=== PATIENT | female | born 1945 | race Caucasian/White ===

== ENCOUNTER 2021-05-25 06:04 | Inpatient (IN) ==
--- NOTE | 2021-05-03 15:36 | PAT Medication Instructions ---
Medication Instructions Date of Service May 03, 2021 Home Medications ascorbic acid (vitamin C) 500 mg tablet (Vitamin C) 500 mg PO QAM aspirin 81 mg tablet,delayed release 81 mg PO QAM atorvastatin 20 mg tablet 20 mg PO QAM cholecalciferol (vitamin D3) 50 mcg (2,000 unit) capsule (Vitamin D3) 50 mcg PO QAM latanoprost 0.005 % eye drops 1 drp OPHTHALMIC (EYE) HS timolol maleate 0.5 % eye drops 1 drp OPHTHALMIC (EYE) QAM ASK your prescriber and surgeon aspirin 81 mg tablet,delayed release 81 mg PO QAM DO NOT take the morning of surgery ascorbic acid (vitamin C) 500 mg tablet (Vitamin C) 500 mg PO QAM cholecalciferol (vitamin D3) 50 mcg (2,000 unit) capsule (Vitamin D3) 50 mcg PO QAM Take morning of surgery With a small sip of water, OTHERWISE NOTHING TO EAT OR DRINK AFTER MIDNIGHT: atorvastatin 20 mg tablet 20 mg PO QAM timolol maleate 0.5 % eye drops 1 drp OPHTHALMIC (EYE) QAM Take evening before surgery latanoprost 0.005 % eye drops 1 drp OPHTHALMIC (EYE) HS Other Notes If you have any questions please call us at [phone] or [phone] or [phone] or [phone]
--- NOTE | 2021-05-11 12:53 | Anesthesiology Consultation ---
Date of Service May 11, 2021 Assessment & Plan (1) Encounter for pre-operative examination: COVID screening: Per assessment on 05/11: Travel screen negative, no known COVID- 19 positive contacts or current COVID-19 related symptoms. Patient vaccinated. Surgeon arranging preop COVID testing. Awaiting results. Chart Review Chart Review: Acceptable Risk for Surgery and Patient seen in Pre Admission Testing Teaching & Discussion Pre-Anesthesia Teaching/Discussion Notes: Instructed NPO after midnight before surgery,except medications with 15 cc of water. Medication instructions provided according to the PAT guidelines. History Surgery Operation Date: 05/25/21 12:25 Proposed Procedures p L4-S1 Decompression Fusion, Spinal Cord Montenriqueing - Xavi De Oliveira, Height/Weight Height: 5 ft 3 in Weight: 45.7 kg Allergies Allergy/AdvReac Type Severity Reaction Status Date / Time No Known Allergies Allergy Verified 04/24/21 14:24 Medications Home Medications Medication Instructions Recorded Confirmed Last Taken ascorbic acid (vitamin C) 500 mg 500 mg PO QAM 04/24/21 04/24/21 Unknown tablet (Vitamin C) aspirin 81 mg tablet,delayed 81 mg PO QAM 04/24/21 04/24/21 Unknown release atorvastatin 20 mg tablet 20 mg PO QAM 04/24/21 04/24/21 Unknown cholecalciferol (vitamin D3) 50 50 mcg PO QAM 04/24/21 04/24/21 Unknown mcg (2,000 unit) capsule (Vitamin D3) latanoprost 0.005 % eye drops 1 drp OPHTHALMIC (EYE) 04/24/21 04/24/21 Unknown timolol maleate 0.5 % eye drops 1 drp OPHTHALMIC (EYE) [facility] 04/24/21 04/24/21 Unknown Past Medical History Medical History Age related osteoporosis Previously on med- since discontinued Back problem Glaucoma History of kidney cancer 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)- tumor/partial kidney resection done, no chemo/xrt History of kidney stones Hyperlipidemia Kidney disease Left kidney "never functioned"/?atrophy Kidney stones Present, no current issues Scoliosis Wrist fracture, right Currently in splint, s/p recent surgery 03/2021 Exercise / Class Metabolic Activity II 4-5 Yardwork/Stairs/Walk up hill (one FS (no CP, no SOB)) Past Surgical History Surgical History History of cholecystectomy History of colonoscopy History of gynecologic surgery PROLAPSED UTERUS (MAY 2020) History of hysterectomy History of partial nephrectomy RIGHT History of surgery on right wrist 03/2021 Nausea and vomiting after administration of anesthetic agent Remote issue, did not have issue with recent outpatient wrist surgery Past Anesthesia History No Hx of Anesthesia Complications (except remote PONV) and No Family Hx of Anesthesia Complications History of PONV No Hx of Motion Sickness and History of PONV (Remote issue, did not have issue with recent outpatient wrist surgery) Social History Smoking Status: Never smoker Do You Dip or Chew Tobacco: No Hx Alcohol Use: No Hx Substance Use: No substance use type: does not use Review of Systems Patient denies chest pain, shortness of breath, dyspnea on exertion, fever, chills, cough, wheezing, palpitations. Physical Exam Vital Signs VITALS BP 123/83 P 70 TEMP 98.3 SP02 98%RA RESP 18 PHYSICAL Full cervical extension range of motion. Full TMJ range of motion. TMD 3 finger breaths Mallampati Score 3 Dentition: intact Lungs: clear throughout to auscultation Cardiac: regular rate and rhythm, no murmurs noted Spine: normal Carotid arteries: negative bruit Extremities: no edema, right wrist in split 03/21 recent surgery 03/2021 Lab Results Anesthesia Preop Results Results Anesthesia Widget: WBC 8.36 K/uL (4.8-10.8) 05/11/21 Hgb 12.2 g/dL (12.0-16.0) 05/11/21 Hct 37.2 % (37-47) 05/11/21 Plt 351 K/uL (130-400) 05/11/21 Na 143 mmol/L (136-145) 05/11/21 K 3.8 mmol/L (3.5-5.1) 05/11/21 Cl 110 mmol/L (98-107) H 05/11/21 CO2 26 mmol/L (21-32) 05/11/21 BUN 14 mg/dl (6-23) 05/11/21 Creat 0.72 mg/dl (0.6-1.2) 05/11/21 Glucose Level 122 mg/dl (70-99(Fasting)) H 05/11/21 PT 10.1 Seconds (9.0-12.0) 05/11/21 PTT 25.4 Seconds (21.0-31.0) 05/11/21 INR 0.9 (0.9-1.1) 05/11/21 Urine Color Yellow 05/11/21 Urine Appearance Clear (Clear) 05/11/21 Urine pH 5.0 (4.5-7.5) 05/11/21 Urine Specific Sanderson 1.019 (1.000-1.030) 05/11/21 Urine Protein Negative (Negative) 05/11/21 Urine Glucose (UA) Negative (Negative) 05/11/21 Urine Ketones Negative (Negative) 05/11/21 Urine Blood Negative (Negative) 05/11/21 Urine Nitrite Negative (Negative) 05/11/21 Urine Bilirubin Negative (Negative) 05/11/21 Urine Urobilinogen Negative (Negative) 05/11/21 Urine Leukocyte Esterase Negative (Negative) 05/11/21 Blood Type O Positive 05/11/21 Antibody Screen POSITIVE A 05/11/21 Lab Comments: Oren at [facility] bank aware of positive antibodies* Testing Electrocardiogram Date: 05/14/21 NSR at 70bom. NS STA. Chest X-Ray Date: 05/11/21 FINDINGS: Frontal and lateral radiographs of the chest demonstrate the cardiomediastinal silhouette to be within normal limits. The lungs are clear of alveolar opacities. There is no evidence for effusion bilaterally. There is no evidence for vascular congestion. There is no acute osseous pathology. IMPRESSION: No acute cardiopulmonary disease.
[~2021-05-25 06:04] MED LIST: ACETAMINOPHEN 500 MG TAB PO SCH; CeleBREX 200 MG CAP PO SCH; GABAPENTIN 300 MG CAP PO SCH; LR 15ML/HR IV SCH; ceFAZolin 1000MG 1,000 MG/7.5 ML SYR IV SCH
[2021-05-25] MEDS ORDERED: SUGAMMADEX SODIUM 200 MG/2 ML VIAL IV ONE (06:11)
[2021-05-25] MEDS ORDERED: HYDROmorphone INJ 2 MG/ML SYR/VIAL ONE (06:28)
[2021-05-25] MEDS ORDERED: ATROPINE SULFATE 0.1 MG/ML 10ML SYR IV PRN (07:06)
[2021-05-25] MEDS ORDERED: ePHEDrine sulfate 50 MG/ML AMP IV PRN (07:06)
[2021-05-25] MEDS ORDERED: fentaNYL citrate 100 MCG/2 ML VIAL IV PRN (07:06)
[2021-05-25] MEDS ORDERED: ONDANSETRON INJ 2 MG/ML 2 ML VIAL IV PRN ×2 (07:06→11:40)
[2021-05-25] MEDS ORDERED: HYDROmorphone INJ 1 MG/ML SYRINGE IV PRN ×2 (07:06→11:40)
[2021-05-25] MEDS ORDERED: GLYCOPYRROLATE 0.2 MG/ML VIAL ONE (07:18)
[2021-05-25] MEDS ORDERED: LIDOCAINE 2% 2 ML VIAL/AMP(20MG/ML) INFIL ONE (07:18)
[2021-05-25] MEDS ORDERED: ROCURONIUM BROMIDE 10 MG/ML 5 ML VIAL IV ONE (07:18)
[2021-05-25] MEDS ORDERED: PROPOFOL IV EMULSION 10 MG/ML 20 ML VIAL IV ONE (07:18)
[2021-05-25] MEDS ORDERED: MIDAZOLAM HCL 1 MG/ML 2ML VIAL ONE (07:18)
[2021-05-25] MEDS ORDERED: DEXAMETHASONE SOD INJ 4 MG/ML VIAL ONE (07:18)
[2021-05-25] MEDS ORDERED: ONDANSETRON INJ 2 MG/ML 2 ML VIAL ONE (07:18)
--- NOTE | 2021-05-25 07:35 | History & Physical Bridge Note ---
Date of Service May 25, 2021 History & Physical Bridge Note I have examined the patient, reviewed the History & Physical and in the interval since the performance of the History & Physical I have noted the following changes of clinical significance: no changes noted
--- NOTE | 2021-05-25 07:38 | History & Physical Report ---
Date of Service May 25, 2021 Assessment & Plan (1) Neurogenic claudication due to lumbar spinal stenosis: Plan: Lumbar decompression L4-S1 History of Present Illness Chief Complaint: Back and leg pain Primary Care Provider: Hever Montana DO 75-year-old female with significant back and right leg pain. After failing since course of nonoperative care is here for surgical invention. Allergies Allergy/AdvReac Type Severity Reaction Status Date / Time No Known Allergies Allergy Verified 05/25/21 06:23 Home Medications Medication Instructions Recorded Confirmed Type ascorbic acid (vitamin C) 500 mg 500 mg PO QAM 04/24/21 05/25/21 History tablet (Vitamin C) aspirin 81 mg tablet,delayed 81 mg PO QAM 04/24/21 05/25/21 History release atorvastatin 20 mg tablet 20 mg PO QAM 04/24/21 05/25/21 History cholecalciferol (vitamin D3) 50 50 mcg PO QAM 04/24/21 05/25/21 History mcg (2,000 unit) capsule (Vitamin D3) latanoprost 0.005 % eye drops 1 drp OPHTHALMIC (EYE) 04/24/21 05/25/21 History timolol maleate 0.5 % eye drops 1 drp OPHTHALMIC (EYE) QAM 04/24/21 05/25/21 History Past Med/Surg History Medical History Age related osteoporosis Previously on med- since discontinued Back problem Glaucoma History of kidney cancer 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)- tumor/partial kidney resection done, no chemo/xrt History of kidney stones Hyperlipidemia Kidney disease Left kidney "never functioned"/?atrophy Kidney stones Present, no current issues Scoliosis Wrist fracture, right Currently in splint, s/p recent surgery 03/2021 Surgical History History of cholecystectomy History of colonoscopy History of gynecologic surgery PROLAPSED UTERUS (MAY 2020) History of hysterectomy History of partial nephrectomy RIGHT History of surgery on right wrist 03/2021 Nausea and vomiting after administration of anesthetic agent Remote issue, did not have issue with recent outpatient wrist surgery Social History Smoking Status: Never smoker Do You Dip or Chew Tobacco: No; Hx Alcohol Use: No Hx Substance Use: No Preferred Language: Colombian Communication Ability: Effective Bi Data Architect Required: No Beliefs That Will Affect Care: None Current Living Situation: Spouse Other Information That Helps Us Care for You: No Feels Safe at Home: Yes Assistive Devices: None Physical Exam Physical Exam: Patient is alert and oriented Heart regular in rhythm Lungs clear Results & Data ([facility]) Vital Signs (Past 12 Hours) Vital Signs Temp Pulse Resp BP Pulse Ox 05/25/21 06:37 36.7 C 65 16 150/93 H 100
[2021-05-25] MEDS ORDERED: ePHEDrine sulfate 50 MG/ML SYR ONE (08:22)
[2021-05-25] MEDS ORDERED: PHENYLEPHRINE 100MCG/ML 5ML SYR ONE (08:22)
[2021-05-25] MEDS ORDERED: FLOSEAL HEMOSTATIC MATRIX 10ML TOP ONE ×3 (08:36→08:44)
[2021-05-25] MEDS ORDERED: SODIUM CHLORIDE 0.9% INJ 10 ML VIAL ONE (08:37)
[2021-05-25] MEDS ORDERED: BUPIVACAINE/EPINEPHRINE 0.25% 1:200,000 30 ML VIAL INFIL ONE ×2 (09:27→09:29)
--- NOTE | 2021-05-25 10:10 | Operative Report ---
Post Operative Report Pre & Post Diagnosis Operation Date: 05/25/21 07:45 Pre-Op Diagnosis: Lumbar spinal stenosis with radiculopathy Lumbar spondylolisthesis Post-Op Diagnosis: Same I identified the patient and participated in the time-out.: Yes Procedure Operation Date: 05/25/21 07:45 Actual Procedures Lumbar decompression bilateral medial facetectomies and foraminotomies L3-L4 L4- 5 L5-S1. #2 posterior spinal fusion L4-L5 L5-S1. #3 placement posterior instrumentation using Medicrea rods and screws L4-S1. #4 interbody fusion L4- L5 L5-S1. #5 placement of Spira cage 8 x 22 at L4-5 and 9 x 22 at L5-S1. #6 placement locally harvested morselized autograft in the posterior gutters. #7 placement infuse collagen sponge, master graft in the posterior gutters and I factor in the body space. Surgeon Xavi De Oliveira, Production Graphic Designer Derrick Buchanan Estimated Blood Loss 100 Findings Consistent with Post-Op Diagnosis Specimens None Indications This is a 75-year-old female with severe neuroforaminal stenosis and radiculopathy after failing course of nonoperative care is here for surgical intervention. Description of Procedure Patient met with identified informed consent obtained. Patient was then taken to the operative suite underwent a patient placed in a prone position adjustable top Joon frame. All bony prominences well-padded eyes inspected to ensure no external pressure placed upon the. This point the lumbar spine was prepped and draped in a normal sterile fashion. Sharp dissection with the assistance of Bovie cautery was performed down to and exposing the lamina transverse processes of L4-5 and sacral ala bilaterally. From caudal to cephalad fashion complete laminectomy L5 L4 partial laminectomy L3 was performed occluding bilateral medial facetectomies and foraminotomies addressing severe spinal stenosis. Pedicle screws were then placed in L4-L5 and S1 levels bilaterally with assistance of fluoroscopy. By way of a transfemoral approach and left knee discectomy of L5-S1 was performed endplates curetted to subcortical being bone and a 9 x 22 mm Spira cage filled I factor tapped in position. Then proceeded to L4-L5 and again by way of a transforaminal portion left complete discectomy performed endplates curetted to subcortically bone and 8 x 22 mm Spira cage filled with I factor tapped in position. The rods were then locked into final position bilaterally. The transverse processes of L4-L5 and sacral ala burred to subcortical bleeding bone. Infuse collagen sponge mass graft local autograft was placed in the posterior gutters. 15 round SAMUEL drain inserted. The incision was then closed with 1 Vicryl the fascia 2-0 Vicryl subcutaneously and 4 Monocryl for final skin closure. Steri-Strip sterile dressing was placed. Patient will continue PACU stable condition. Please note spinal cord monitoring was utilized at the procedure no changes noted. Lastly Derrick Buchanan was present at the entire surgery and while the patient positioning complex portions of the surgery and fascial closure. I attest to the content of the Intraoperative Record and any orders documented therein. Any exceptions are noted below.
--- NOTE | 2021-05-25 11:04 | Anesthesiology Progress Note ---
Date of Service May 25, 2021 Anesthesia Post Procedure Vital Signs Vital Signs: Temp Pulse Pulse Resp BP Pulse Ox 05/25/21 10:55 95 H 16 105/79 96 05/25/21 10:45 90 16 119/81 99 05/25/21 10:35 92 H 23 115/83 100 05/25/21 10:29 36 C L 86 16 129/81 99 05/25/21 06:37 36.7 C 65 16 150/93 H 100 Transfer of Care Handoff Completed per policy Notes Mental Status: alert / awake / arousable and participated in evaluation Patient Amnestic to Procedure: Yes Nausea / Vomiting: adequately controlled Pain: adequately controlled Airway Patency, RR, SpO2: stable & adequate BP & HR: stable & adequate Hydration State: stable & adequate Anesthetic Complications: no major complications apparent and Pt Satisfied with anesthetic care
[2021-05-25] MEDS: SODIUM CHLORIDE 0.9% 1000ML 1,000 ML IV SCH ×2 (11:40→20:50)
[2021-05-25] MEDS ORDERED: DO NOT ADMINISTER PNEUMOCOCCAL VACCINE PRN (11:40)
[2021-05-25] MEDS ORDERED: MAGNESIUM HYDROXIDE SUSP 30 ML UDC PO PRN (11:40)
[2021-05-25] MEDS ORDERED: HYDROmorphone INJ 0.5 MG/0.5 ML SYR IV PRN (11:40)
[2021-05-25] MEDS ORDERED: diphenhydrAMINE Capsule 25 MG CAP PO PRN (11:40)
[2021-05-25] MEDS ORDERED: ONDANSETRON 4 MG OD TAB PO PRN (11:40)
[2021-05-25] MEDS ORDERED: METOCLOPRAMIDE HCL INJ 5 MG/ML 2 ML VIAL IV PRN (11:40)
[2021-05-25] MEDS ORDERED: DO NOT ADMINISTER FLU VACCINE PRN (11:40)
[2021-05-25] MEDS ORDERED: SOD PHOSPHATE/SOD BIPHOSPHATE ENEMA 132 ML BTL PR PRN (11:40)
[2021-05-25] MEDS ORDERED: hydrOXYzine HCl 25 MG TAB PO PRN (11:40)
[2021-05-25] MEDS ORDERED: NALOXONE HCL 0.4 MG/1 ML VIAL/CARP IV PRN (11:40)
[2021-05-25] MEDS ORDERED: LORazepam 0.5 MG TAB PO PRN (11:40)
[2021-05-25] MEDS ORDERED: FAMOTIDINE 20 MG TAB PO PRN (11:40)
[2021-05-25] MEDS ORDERED: PROMETHAZINE HCL 12.5 MG in SODIUM CHLORIDE 0.9% 50 ML IV PRN (11:40)
[2021-05-25] MEDS ORDERED: ALUMINUM/MAGNESIUM SUSP 30 ML UDC PO PRN (11:40)
[2021-05-25] MEDS ORDERED: ACETAMINOPHEN 1,000 MG/100 ML VIAL IV PRN (11:40)
[2021-05-25] MEDS ORDERED: LORazepam 2 MG/1 ML VIAL IV PRN (11:40)
[2021-05-25] MEDS ORDERED: traMADol HCL 50 MG TABLET PO PRN (11:40)
[2021-05-25] MEDS ORDERED: bisacodyL 10 MG SUPP PR PRN (11:40)
--- NOTE | 2021-05-25 13:06 | Consultation ---
Date of Consultation May 25, 2021 Assessment & Plan (1) Neurogenic claudication due to lumbar spinal stenosis: Neurogenic claudication due to lumbar spinal stenosis Actual Procedures Lumbar decompression bilateral medial facetectomies and foraminotomies L3-L4 L4-5 L5-S1. #2 posterior spinal fusion L4-L5 L5-S1. #3 placement posterior instrumentation using Medicrea rods and screws L4-S1. #4 interbody fusion L4- L5 L5-S1. #5 placement of Spira cage 8 x 22 at L4-5 and 9 x 22 at L5-S1. #6 placement locally harvested morselized autograft in the posterior gutters. #7 placement infuse collagen sponge, master graft in the posterior gutters and I factor in the body space. POD #[address] De Oliveira EBL 100ml tolerated procedure well pain/wound management per ortho activity and therapy as prescribed by ortho encourage incentive spirometry monitor hgb, pre op 12.2 Hx of R kidney ca s/p R nephrectomy Nonfunctioning L kidney - per pt ? atrophic kidney follow bmp, avoid nephrotoxic agents Glaucoma continue eye gtts DVT ppx: per primary PCP: Hever carpenter FULL CODE Pt was seen and examined in collaboration with Dr. France, please see addendum Thank you for this consultation. We will follow the patient with you during their hospital stay. You can reach a member of the [facility] [address] Hospitalist Team 09/09 via hospitalist role on tiger text. Supervising Physician Co-Signing Physician Notes Care coordinated with Kyra Parks PA-C. Agree with above note. Patient seen and examined. Please refer to her notes for full details. Vital signs reviewed. Physical exam: General exam: Alert and oriented. Not in acute distress. CVS: S1 and S2 heard, regular rate and rhythm, no murmurs. RS: Clear to auscultation, no wheezing or crackles. ABD: Soft, bowel sounds present, nontender, no distention. DIELECTRIC TESTING MACHINE OPERATOR: Nonfocal. Musculoskeletal; S/p Back surgery Dressing and drain intact EXT: No edema, no erythema. Labs: Reviewed. Assessment and plan: s/p Back surgery management as per ortho. Hx of Glaucoma eye drops Other diagnosis and plan of care as per Kyra Parks PA-C. Guanaco sanz MD. History of Present Illness Requesting Physician: Dr. De Oliveira Reason for Consultation: Postop medical management Attending Physician: Xavi De Oliveira DO History of Present Illness This is a 75-year-old female who has significant past medical history of her kidney cancer status post partial nephrectomy, nonfunctioning left kidney, history of nephrolithiasis, glaucoma, scoliosis, recent right wrist fracture who presents for elective lumbar procedure by Dr. Kilo aldrich. She underwent L3-S1 decompression fusion and tolerated the procedure well. Postoperatively she is eating a clear liquid diet for lunch and tolerating it well. Her is at bedside. She complains of mild postop pain but denies any radicular symptoms. She is a Wakefield catheter in place. She denies fever, chills, sweats, lightheadedness, dizziness, chest pain, shortness of breath, nausea, vomiting, abdominal pain, change in bowel or urinary habits. She states at baseline she tends to run on the constipated side she takes a daily Dulcolax and MiraLAX daily. Due to prior history of kidney cancer partial nephrectomy she does have residual hernia can result in constipation. Her PCP is in [place] Allergies Allergy/AdvReac Type Severity Reaction Status Date / Time No Known Allergies Allergy Verified 05/25/21 06:23 Home Medications Medication Instructions Recorded Confirmed Type ascorbic acid (vitamin C) 500 mg 500 mg PO QAM 04/24/21 05/25/21 History tablet (Vitamin C) aspirin 81 mg tablet,delayed 81 mg PO QAM 04/24/21 05/25/21 History release atorvastatin 20 mg tablet 20 mg PO QAM 04/24/21 05/25/21 History cholecalciferol (vitamin D3) 50 50 mcg PO QAM 04/24/21 05/25/21 History mcg (2,000 unit) capsule (Vitamin D3) latanoprost 0.005 % eye drops 1 drp OPHTHALMIC (EYE) 04/24/21 05/25/21 History timolol maleate 0.5 % eye drops 1 drp OPHTHALMIC (EYE) QA 04/24/21 05/25/21 History oxycodone 5 mg tablet 5 mg PO Q6H PRN #30 tab 05/25/21 Rx tramadol 50 mg tablet 50 mg PO Q6H PRN #30 tab 05/25/21 Rx Patient History Medical History (Updated 05/25/21 @ 13:01 by Kyra Parks PA-C) Age related osteoporosis Previously on med- since discontinued Back problem Glaucoma History of kidney cancer 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)- tumor/partial kidney resection done, no chemo/xrt History of kidney stones Hyperlipidemia Kidney disease Left kidney "never functioned"/?atrophy Kidney stones Present, no current issues Scoliosis Wrist fracture, right Currently in splint, s/p recent surgery 03/2021 Surgical History History of cholecystectomy History of colonoscopy History of gynecologic surgery PROLAPSED UTERUS (MAY 2020) History of hysterectomy History of partial nephrectomy RIGHT History of surgery on right wrist 03/2021 Nausea and vomiting after administration of anesthetic agent Remote issue, did not have issue with recent outpatient wrist surgery Family History Denies family history of Diabetes Heart disease Social History Smoking Status: Never smoker Do You Dip or Chew Tobacco: No; Hx Alcohol Use: No Hx Substance Use: No Preferred Language: Stateless Communication Ability: Effective Digital Strategist Senior Manager Required: No Beliefs That Will Affect Care: None Current Living Situation: Spouse Other Information That Helps Us Care for You: No Feels Safe at Home: Yes Assistive Devices: None Review of Systems Review of Systems: All systems reviewed & are unremarkable except as noted in HPI & below Physical Exam Physical Exam: Constitutional: WD/WN, soft-spoken, female, vitals as above, NAD, sitting up in bed, pleasant, conversing easily Head: Normocephalic, Atraumatic Eyes: PERRL, conjunctivae normal, anicteric sclerae ENMT: external ear and nose normal, oropharynx normal Neck: trachea midline, no thyromegaly normal visual inspection Respiratory: normal respiratory effort, lungs clear to auscultation, no wheeze, rales, rhonchi. Normal insp/exp effort, no accessory muscle use Cardiovascular: RRR, no murmur, no edema Vessels: no JVD or carotid bruit Chest: normal inspection of chest Abdomen: normal bowel sounds, soft, nontender, no hepatosplenomegaly Musculoskeletal: no cyanosis or clubbing, active range of motion x4, lumbar dressing CDI, SAMUEL drain with serosanguineous drainage Skin: no rashes, warm and dry normal turgor Neurologic: PERRL, EOMI, accommodation nl, no face palsy, no dysarthria CN's II-XI intact bilaterally and moves all extremities Psychiatric: A+Ox3, euthymic affect Lymphatic: no cervical or axillary lymphadenopathy : Wakefield catheter draining clear yellow urine Results & Data ([facility]) Vital Signs (Past 12 Hours) Vital Signs Temp Pulse Pulse Resp BP Pulse Ox 05/25/21 12:30 36.5 C 78 16 104/65 96 05/25/21 12:00 36.4 C L 77 16 103/68 96 05/25/21 11:30 36.5 C 82 16 114/70 97 05/25/21 11:15 36.5 C 85 16 113/73 96 05/25/21 11:05 86 16 124/81 96 05/25/21 10:55 95 H 16 105/79 96 05/25/21 10:45 90 16 119/81 99 05/25/21 10:35 92 H 23 115/83 100 05/25/21 10:29 36 C L 86 16 129/81 99 05/25/21 06:37 36.7 C 65 16 150/93 H 100 Laboratory Results Preoperative lab work 05/11/2021 WBC 8.36, H&H 12.2 and 37.2, platelet 351 Sodium 143, K3.8, BUN 14, creatinine 1.72, glucose 122 Urinalysis negative SARS-CoV-2 negative Diagnostic Findings Preoperative chest x-ray on 05/11/2021 from interpretation no acute cardiopulmonary disease Medications Administered Medication List Acetaminophen (Acetaminophen 500 Mg Tab) 1,000 mg PO PREOP HEMAL Stop: 05/25/21 18:00 Last Admin: 05/25/21 06:44 Dose: 1,000 mg Documented by: [id number] Celecoxib (Celebrex 200 Mg Cap) 200 mg PO PREOP HEMAL Stop: 05/25/21 18:00 Last Admin: 05/25/21 06:45 Dose: 200 mg Documented by: [id number] Gabapentin (Gabapentin 300 Mg Cap) 300 mg PO PREOP HEMAL Stop: 05/25/21 18:00 Last Admin: 05/25/21 06:45 Dose: 300 mg Documented by: [id number] Cefazolin Sodium (Ancef 1000mg) 1,000 mg in 7.5 mls @ 2.5 mls/min IV PREOP HEMAL; Protocol Stop: 05/25/21 18:00 Last Admin: 05/25/21 07:45 Dose: 2.5 mls/min Documented by: [id number] Lactated Ringer's (Lr) 1,000 mls @ 15 mls/hr IV .Q24H HEMAL Stop: 05/26/21 05:59 Last Infusion: 05/25/21 07:45 Dose: 0 mls/hr Documented by: [id number] Admin: 05/25/21 06:44 Dose: 15 mls/hr Documented by: [id number] Sodium Chloride (Nss 1000ml) 1,000 mls @ 100 mls/hr IV .Q10H [facility] Stop: 06/24/21 11:39 Last Admin: 05/25/21 11:40 Dose: 100 mls/hr Documented by: [id number] Discontinued Medications Bupivacaine HCl/Epinephrine Bitart (Bupivacaine/Epinephrine 0.25% 1:200,000 30 Ml Vial) 10 ml INFIL ONE ONE Stop: 05/25/21 09:28 Last Admin: 05/25/21 12:53 Dose: Not Given Documented by: [id number] Bupivacaine HCl/Epinephrine Bitart (Bupivacaine/Epinephrine 0.25% 1:200,000 30 Ml Vial) 30 ml INFIL ONE ONE Stop: 05/25/21 09:30 Last Admin: 05/25/21 12:53 Dose: Not Given Documented by: [id number] Miscellaneous ( Floseal Hemostatic Matrix 10ml) 10 ml TOP ONCE ONE Stop: 05/25/21 08:37 Last Admin: 05/25/21 08:15 Dose: 10 ml Documented by: [id number] Miscellaneous ( Floseal Hemostatic Matrix 10ml) 10 ml TOP ONCE ONE Stop: 05/25/21 08:41 Last Admin: 05/25/21 08:16 Dose: 20 ml Documented by: [id number] Miscellaneous ( Floseal Hemostatic Matrix 10ml) 20 ml TOP ONCE ONE Stop: 05/25/21 08:45 Last Admin: 05/25/21 12:53 Dose: Not Given Documented by: [id number] ECG Rate (beats per minute): 70 Rhythm: normal sinus
--- NOTE | 2021-05-25 13:57 | Fluoroscopy Report ---
FL lumbar spine 2-3V CLINICAL HISTORY: L4-S1 DECOMPRESSION AND FUSION COMPARISON STUDY: None FLUOROSCOPY TIME: 35 seconds. FLUOROSCOPIC IMAGES: 2 FINDINGS: AP and lateral spot C-arm image demonstrate interpedicular screw and felice fixation from L4 t hrough S1. Disc spacers are also present at the interval disc spaces. IMPRESSION: Status post internal fixation. ACT 112: Negative or not required by law. Electronically signed by: Claudio Blank M.D. 05/25/2021 1:56 PM
[2021-05-25] MEDS: ceFAZolin 1000MG 1,000 MG/7.5 ML SYR IV SCH ×2 (16:16→22:37)
[2021-05-25] MEDS: DOCUSATE SODIUM/SENNA 50/8.6MG TAB PO SCH (20:50)
[2021-05-25] MEDS: oxyCODONE HCL IR 5 MG TAB (IMMEDIATE RELEASE) PO PRN (22:34)
[2021-05-25] MEDS: LATANOPROST 0.005% OP SOLN 2.5 ML BTL OP SCH (22:36)
[2021-05-26] MEDS: POLYETHYLENE (MIRALAX) 17 GM PACK PO SCH ×4 (05:59→23:34)
[2021-05-26] MEDS: ACETAMINOPHEN 500 MG TAB PO PRN (06:04)
[2021-05-26 07:21] LABS: Hematocrit (blood only) 27.6 % (37-47); Hemoglobin 8.9 g/dL (12.0-16.0); Mean Corpuscular Hemoglobin 30.8 pg (25-34); Mean Corpuscular Hgb Conc 32.2 g/dL (32-36); Mean Corpuscular Volume 95.5 fL (80-100); Mean Platelet Volume 9.6 fL (7.4-10.4); Platelet Count 251 K/uL (130-400); RDW Coefficient of Variation 14.2 % (11.5-14.5); RDW Standard Deviation 49.5 fL (36.4-46.3); Red Blood Count 2.89 M/uL (4.2-5.4)
[2021-05-26 07:51] LABS: Basophils # (auto) 0.01 K/uL (0-0.2); Basophils % (auto) 0.1 %; Eosinophils # (auto) 0.07 K/uL (0-0.5); Eosinophils % (auto) 0.9 %; Immature Granulocytes # (auto) 0.01 K/uL (0.00-0.02); Immature Granulocytes % (auto) 0.1 %; Lymphocytes # (auto) 1.59 K/uL (1.2-3.4); Lymphocytes % (auto) 20.1 %; Monocytes # (auto) 0.96 K/uL (0.11-0.59); Monocytes % (auto) 12.2 %; Neutrophils # (auto) 5.26 K/uL (1.4-6.5); Neutrophils % (auto) 66.6 %
[2021-05-26 08:04] LABS: BUN Creatinine Ratio 17.7 (10-20); Calcium 8.1 mg/dl (8.5-10.1); Est GFR (African American) 103.7 ml/min; Est GFR (Non-African American) 89.5 ml/min; Potassium 3.6 mmol/L (3.5-5.1)
[2021-05-26] MEDS: ATORVASTATIN 20 MG TAB PO SCH (08:21)
[2021-05-26] MEDS: dexAMETHasone 6 MG in SYRINGE 0 ML IV SCH (08:21)
[2021-05-26] MEDS: CHOLECALCIFEROL 1,000 UNITS 25 MCG TAB PO SCH (08:21)
[2021-05-26] MEDS: TIMOLOL MALEATE 0.25% OP SOLN 5 ML BTL OPB SCH (08:21)
[2021-05-26] MEDS: ASCORBIC ACID 500 MG TAB PO SCH (08:21)
[2021-05-26] MEDS: ASPIRIN 81 MG ECTAB PO SCH (08:21)
[2021-05-26] MEDS: oxyCODONE HCL IR 5 MG TAB (IMMEDIATE RELEASE) PO PRN ×2 (08:28→15:19)
--- NOTE | 2021-05-26 08:44 | Orthopedic Progress Note ---
Date of Service May 26, 2021 Assessment & Plan (1) Neurogenic claudication due to lumbar spinal stenosis: Plan: At this time initiate physical therapy monitor SAMUEL output hopefully discharge home in next few days. Admission and Anticipated Discharge Date Admission Date: May 25, 2021 Subjective Back pain controlled leg pain markedly improved Physical Exam Physical Exam: Patient has good strength testing appears comfortable. Results & Data ([facility]) Vital Signs (Past 12 Hours) Vital Signs Temp Pulse Pulse Resp BP Pulse Ox 05/26/21 07:53 36.8 C 70 16 105/63 97 05/26/21 05:15 36.7 C 75 16 110/65 100 05/26/21 01:00 36.6 C 72 16 104/69 99 05/25/21 21:06 36.7 C 65 16 120/75 99
--- NOTE | 2021-05-26 13:51 | Hospitalist Progress Note ---
Date of Service May 26, 2021 Assessment & Plan (1) Neurogenic claudication due to lumbar spinal stenosis: Plan: Neurogenic claudication due to lumbar spinal stenosis S/P Lumbar decompression, fusion surgery by Dr. De Oliveira POD #1 Postoperative acute blood loss anemia Pain/wound management per ortho Activity as per ortho Continue Incentive spirometry Bowel regimen to prevent constipation Monitor CBC H/O Right kidney CANCER s/p RIGHT nephrectomy Nonfunctioning L kidney - per pt ? atrophic kidney Avoid nephrotoxic agents Monitor renal function Glaucoma continue eye gtts DVT Px: per primary team Code Status FULL CODE Admission and Anticipated Discharge Date Admission Date: May 25, 2021 Subjective Patient is seen and examined at bedside Back pain at surgical site is controlled No bowel movement today Denies any chest pain, shortness of breath, dizziness, nausea, abdominal pain Review of Systems Review of Systems: All systems reviewed & are unremarkable except as noted in Subjective Physical Exam Physical Exam: Physical Exam: Vitals signs as noted above General Appearance:Thin, Frail, no apparent distress Head: normocephalic, Atraumatic Eyes: normal inspection, EOMI Neck: supple, Trachea midline Respiratory/Chest: Normal breath sounds, CTA, No accessory muscle use Cardiovascular: S1, S2, No murmur Abdomen/GI:Soft, Non tender, Bowel sounds present Back: Surgical site in dressing Extremities/Musculoskeletal:normal inspection, no edema, Right Wrist-surgical scar Neurologic/Psych:AAOX3, grossly no focal neurological deficits Skin: normal color, warm Results & Data Results & Data ([facility]) Vital Signs (Past 12 Hours) Vital Signs Temp Pulse Pulse Resp BP Pulse Ox 05/26/21 07:53 36.8 C 70 16 105/63 97 05/26/21 05:15 36.7 C 75 16 110/65 100 Laboratory Results Short CBC 05/26/21 Range/Units 07:06 WBC 7.90 (4.8-10.8) K/uL Hgb 8.9 L (12.0-16.0) g/dL Hct 27.6 L (37-47) % Plt Count 251 (130-400) K/uL BMP 05/26/21 07:06 Sodium 140 Potassium 3.6 Chloride 109 H Carbon Dioxide 26 BUN 11 Creatinine 0.62 Glucose 104 H Calcium 8.1 L
[2021-05-26] MEDS: LATANOPROST 0.005% OP SOLN 2.5 ML BTL OP SCH (20:29)
[2021-05-26] MEDS: DOCUSATE SODIUM/SENNA 50/8.6MG TAB PO SCH (20:29)
[2021-05-27] MEDS: ACETAMINOPHEN 500 MG TAB PO PRN ×2 (06:02→13:36)
[2021-05-27] MEDS: POLYETHYLENE (MIRALAX) 17 GM PACK PO SCH ×2 (06:02→12:18)
[2021-05-27 06:11] LABS: Hematocrit (blood only) 27.6 % (37-47); Hemoglobin 9.1 g/dL (12.0-16.0); Mean Corpuscular Hemoglobin 31.3 pg (25-34); Mean Corpuscular Volume 94.8 fL (80-100); Mean Platelet Volume 9.4 fL (7.4-10.4); Platelet Count 229 K/uL (130-400); RDW Coefficient of Variation 14.3 % (11.5-14.5); RDW Standard Deviation 49.3 fL (36.4-46.3); Red Blood Count 2.91 M/uL (4.2-5.4)
[2021-05-27 06:33] LABS: BUN Creatinine Ratio 25.8 (10-20); Calcium 8.8 mg/dl (8.5-10.1); Creatinine Clr Calc Pharmacy 54.5 ml/min; Est GFR (African American) 101.6 ml/min; Est GFR (Non-African American) 87.6 ml/min; Potassium 3.8 mmol/L (3.5-5.1)
[2021-05-27] MEDS: CHOLECALCIFEROL 1,000 UNITS 25 MCG TAB PO SCH (08:58)
[2021-05-27] MEDS: ATORVASTATIN 20 MG TAB PO SCH (08:58)
[2021-05-27] MEDS: ASPIRIN 81 MG ECTAB PO SCH (08:58)
[2021-05-27] MEDS: ASCORBIC ACID 500 MG TAB PO SCH (08:58)
[2021-05-27] MEDS: dexAMETHasone 6 MG in SYRINGE 0 ML IV SCH (08:59)
[2021-05-27] MEDS: TIMOLOL MALEATE 0.25% OP SOLN 5 ML BTL OPB SCH (09:00)
--- NOTE | 2021-05-27 11:37 | Discharge Summary ---
Date of Service May 27, 2021 Admission HPI Per Admitting Provider 75-year-old female with significant back and right leg pain. After failing since course of nonoperative care is here for surgical invention. Principal Diagnosis Lumbar spinal stenosis with spondylolisthesis Discharge Data Allergies Allergy/AdvReac Type Severity Reaction Status Date / Time No Known Allergies Allergy Verified 05/25/21 06:23 Consultations 05/25/21 11:40 Consult Hospitalist Routine Procedures Performed Operation Date: 05/25/21 07:45 Actual Procedures p L4-S1 Decompression Fusion, Spinal Cord [place] - Xavi De Oliveira DO Ordered Studies 05/25/21 07:45 FL lumbar spine 2-3V Routine Hospital Course (1) Neurogenic claudication due to lumbar spinal stenosis: Patient underwent lumbar decompression fusion tolerated this well was taken to the orthopedic floor postoperative. Postop day 1 she was up and ambulating progressive postop day #2. SAMUEL drain decreasing probably. Pain well controlled. Excellent strength testing. Subsequently discharged home. Discharge orders instructions from the chart for further review. Total Time Total Time Spent Total Time Spent (In Minutes): 20 minutes Discharge Plan Discharge Items Patient Disposition: Home - Self-Care Reason For Visit: Spinal Stenosis of Lumbar Discharge Diagnosis: Lumbar spinal stenosis with spondylolisthesis Activity: Per Instructions section Non-emergency contact: Primary Care Provider Call non-emergency contact if: you have any medication questions Follow-up/Referrals: Hever Montana DO [Primary Care Provider] - Diet: Regular Addtl Attending Provider Instructions: ACTIVITY RECOMMENDATIONS: SELF CARE INSTRUCTIONS AFTER THORACIC/LUMBAR FUSIONS 1. You may walk to your tolerance. It is good exercise for your legs and back. Expect some back and intermittent leg aches and pains. 2. You may perform "counter-top" level activities (make a sandwich, gita with a project, etc.). 3. No bending or lifting of more than 10 pounds or back twisting of any nature (roll like a log when turning in bed). 4. You may ride in a car for 20-30 minutes at a time. No driving until after your first visit with your doctor. 5. Frequent changes of position and restricting sitting to 30 minutes at a time will help limit the amount of back spasms and stiffness you may experience. 6. You may discontinue the use of ambulatory aids (cane, crutches, etc.) once your strength and confidence allow. 7. You may stabilizing machine operator the shower and let water strike your incision when you arrive home at least once daily. Do not take a tub bath, sit in a hot tub or go into a swimming pool until after your first recheck in the office. SPECIAL CARE INSTRUCTIONS: VERY IMPORTANT TO READ AND REVIEW A. Your surgical incision has been closed with a cosmetic suture under the skin that will dissolve in about 6 weeks. In 14 days, you can use a pair of clean scissors and cut the suture that is left outside of the skin at the ends of your incision. 1. The small skin tapes can be removed 7 days after surgery if they have not fallen off by that point. 2. You may keep the wound open to air as much as possible to promote healing after post-op day number 5 unless told otherwise by your doctor. 3. If you think the wound looks like it is becoming infected (redness or worsening drainage) and/or you are experiencing fever, chill or worsening back pain and muscle spasms, contact the office so that we may evaluate you as soon as possible. B. Complications are uncommon, but please contact us if you have any signs or symptoms of: 1. wound infection (fever higher than 102.5 degrees F, redness, separation of wound, drainage, or increasing pain from the incision) 2. blood clots in legs (pain, swelling, redness and warmth in legs) 3. urinary tract infection (fever higher than 102.5 degrees F, burning upon urination or increased frequency of urination) 4. nerve problems (inability to walk on your toes or heels, numbness, loss of bowel or bladder control) 5. any other symptoms that concern you C. Please call the office at if you have any concerns or questions about your operation or recovery. D. No smoking! Smoking drastically decreases the chance of a solid fusion. E. Do not take any anti-inflammatory medications (Indocin, Advil, Motrin, Aspirin, Naprosyn, etc.) as these may inhibit the chance of a solid fusion. Tylenol is okay to take for pain. MANAGING PAIN AFTER SPINAL SURGERY 1. Narcotic medication is intended for short-term use and will be provided for surgical pain. Surgical pain usually lasts for a period of 4-6 weeks. Narcotic medication includes Percocet, Vicodin, Darvocet, Tylenol #3 or Lortab. 2. Longer-term pain is more appropriately treated with non-narcotic medication such as Tylenol ES. 3. Muscle spasm is not appropriately treated with narcotics. Muscle relaxers such as Soma, Flexeril or Skelaxin can be used along with Tylenol ES. 4. Remember that we all live with some "aches and pains". This is not unusual or uncommon after an injury or as we get older. a. Back pain is expected and may include muscle spasms for 4 to 6 weeks after surgery. The pain should gradually improve. If the pain worsens for no apparent reason, please contact the office. b. Intermittent leg pain may also be experienced and should not be concerned about unless it worsens for no apparent reason. If so, please contact the office. 5. We will provide appropriate medication within the normal guidelines of their prescribed use. We will also be very cautious and aware of potential abuse and extended duration of patients' medication needs. a. Pain medications are for your comfort and to assist with sleep and rest so that the tissue can heal. They are not provided in order to return to normal activity and should not be used through the day. To do so or worsening pain at night can result from ongoing tissue damage and development of tolerance to the prescribed medicine. 6. Please allow 2-3 days to process refills. Prescriptions will not be mailed but must be picked up at the office. FOLLOW UP VISIT: Keep your scheduled follow-up appointment. Any questions, please call the office at . Pending Studies at Discharge: No Stand-Alone Forms: [facility], Smoking Cessation Medications and CA Order Prescriptions: New tramadol 50 mg tablet 50 mg PO Q6H PRN (Reason: pain, moderate) Qty: 30 RF: 0 oxycodone 5 mg tablet 5 mg PO Q6H PRN (Reason: pain, severe) Qty: 30 RF: 0 Continued latanoprost 0.005 % Drops 1 drp OPHTHALMIC (EYE) HS RF: 0 atorvastatin 20 mg Tablet 20 mg PO QAM RF: 0 aspirin 81 mg Tablet,Delayed Release (Dr/Ec) 81 mg PO QAM RF: 0 ascorbic acid (vitamin C) [Vitamin C] 500 mg Tablet 500 mg PO QAM RF: 0 timolol maleate 0.5 % Drops 1 drp OPHTHALMIC (EYE) QAM RF: 0 cholecalciferol (vitamin D3) [Vitamin D3] 50 mcg (2,000 unit) Capsule 50 mcg PO QAM RF: 0 Discharge Orders: Discharge Order (Routine); Ordered 05/27/21 Ordered By: Xavi De Oliveira Admission Data Admit Date/Time: 05/25/21 10:13 Attending Provider: Xavi De Oliveira Admit Provider: Xavi De Oliveira Primary Care Provider: Hever Montana Other Providers: Alvaro Cuellar
--- NOTE | 2021-05-27 13:00 | Hospitalist Progress Note ---
Date of Service May 27, 2021 Assessment & Plan (1) Neurogenic claudication due to lumbar spinal stenosis: Plan: Neurogenic claudication due to lumbar spinal stenosis S/P Lumbar decompression, fusion surgery by Dr. De Oliveira POD #2 Postoperative acute blood loss anemia Pain/wound management per ortho Activity as per ortho Continue Incentive spirometry Continue Bowel regimen No indication for blood transfusion H/O Right kidney CANCER s/p RIGHT nephrectomy Nonfunctioning L kidney - per pt ? atrophic kidney Avoid nephrotoxic agents Monitor renal function Glaucoma continue eye gtts DVT Px: per primary team Code Status FULL CODE Admission and Anticipated Discharge Date Admission Date: May 25, 2021 Subjective Patient is seen and examined at bedside No new complaints States feeling better Back pain is controlled Denies any chest pain, shortness of breath, dizziness, nausea, abdominal pain Ambulated in Hallway Review of Systems Review of Systems: All systems reviewed & are unremarkable except as noted in Subjective Physical Exam Physical Exam: Physical Exam: Vitals signs as noted above General Appearance:Thin, Frail, no apparent distress Head: normocephalic, Atraumatic Eyes: normal inspection, EOMI Neck: supple, Trachea midline Respiratory/Chest: Normal breath sounds, CTA, No accessory muscle use Cardiovascular: S1, S2, No murmur Abdomen/GI:Soft, Non tender, Bowel sounds present Back: Surgical site in dressing Extremities/Musculoskeletal:normal inspection, no edema, Right Wrist-surgical scar Neurologic/Psych:AAOX3, grossly no focal neurological deficits Skin: normal color, warm Results & Data Results & Data ([facility]) Vital Signs (Past 12 Hours) Vital Signs Temp Pulse Pulse Resp BP BP Pulse Ox 05/27/21 12:21 36.5 C 84 85 16 104/64 101/65 96 05/27/21 07:46 36.5 C 84 16 104/64 96 Laboratory Results Short CBC 05/27/21 Range/Units 05:57 WBC 8.90 (4.8-10.8) K/uL Hgb 9.1 L (12.0-16.0) g/dL Hct 27.6 L (37-47) % Plt Count 229 (130-400) K/uL BMP 05/27/21 05:57 Sodium 140 Potassium 3.8 Chloride 107 Carbon Dioxide 27 BUN 17 Creatinine 0.66 Glucose 99 Calcium 8.8
== END 2021-05-27 14:20 | disposition home or self-care (01) | DRG 455 ==
LOC: ASU 06:04 → 3E 10:13